=== PATIENT | female | born 1950 | race Asian ===

== ENCOUNTER 2019-04-22 23:06 | Emergency (ER) | payer OTHER ==
[~2019-04-22] VITALS: Ht 157.5 cm; Wt 86.0 kg
[2019-04-22 23:20] VITALS: BP 174/105
[2019-04-22] MEDS ORDERED: SODIUM CHLORIDE 0.9% 2,000 ML IV ONE (23:30)
[2019-04-22] MEDS: ACETAMINOPHEN 500 MG TABLET PO ONE ×2 (23:35→23:39)
[2019-04-22 23:48] LABS: APPEARANCE,URINE CLEAR (CLEAR); BILIRUBIN,URINE NEGATIVE (NEGATIVE); GLUCOSE, URINE (UA) NEGATIVE (NEGATIVE); KETONES,URINE NEGATIVE (NEGATIVE); LEUKOCYTE ESTERASE ,URINE NEGATIVE (NEGATIVE); NITRATE,URINE NEGATIVE (NEGATIVE); OCCULT BLOOD,URINE NEGATIVE (NEGATIVE); PROTEIN,URINE NEGATIVE (NEGATIVE); UROBILINOGEN,URINE 0.2 mg/dL (<=1.0)
[2019-04-22 23:54] LABS: BACTERIA,URINE None Seen /HPF (None Seen); RBC,URINE 0-2 /HPF (0-2); SQUAMOUS EPITHELIAL CELL,UR Rare /LPF (None Seen); WBC,URINE 0-2 /HPF (0-5)
[2019-04-22 23:57] LABS: BASOPHILS % (AUTO) 1.1 % (0.0-2.0); EOSINOPHILS % (AUTO) 2.5 % (1.0-6.0); HEMATOCRIT 43.6 % (36-46); HEMOGLOBIN 14.6 g/dL (12.0-16.0); MEAN CORPUSCULAR HEMOGLOBIN 32.6 pg (26.0-34.0); MEAN CORPUSCULAR HGB CONC 33.6 G/dL (31.0-37.0); MEAN CORPUSCULAR VOLUME 97 fL (80-100); MONOCYTES # (AUTO) 0.8 K/uL (0.1-1.0); MONOCYTES % (AUTO) 12.3 % (2.0-9.0); NEUTROPHILS # (AUTO) 4.3 K/uL (1.8-7.7); NEUTROPHILS % (AUTO) 68.1 % (40.0-70.0); PLATELET COUNT (AUTO) 238 K/uL (150-450); RED BLOOD CELL COUNT(AUTO) 4.48 MIL/uL (4.00-5.20); RED CELL DISTRIBUTION WIDTH 12.4 % (11.5-14.5)
[2019-04-23 00:03] LABS: INFLUENZA TYPE A NEGATIVE FOR TYPE A (NEGATIVE); INFLUENZA TYPE B NEGATIVE FOR TYPE B (NEGATIVE)
[2019-04-23 00:04] LABS: ANION GAP 11 mmol/L (8-16); CALCIUM, TOTAL 8.2 mg/dL (8.8-10.5); CARBON DIOXIDE 27 mmol/L (22-29); CHLORIDE 101 mmol/L (98-107); CREATININE 0.89 mg/dL (0.60-1.30); GLOMERULAR FILTR. RATE CALC > 60 mL/min (>60); GLUCOSE,RANDOM 122 mg/dL (70-110); SODIUM SERUM 139 mmol/L (136-145); UREA NITROGEN, BLOOD 12 mg/dL (7-18)
[2019-04-23 00:11] LABS: ALANINE AMINOTRANSFERASE 49 U/L (12-78); ALBUMIN 3.6 g/dL (3.4-5.0); ALKALINE PHOSPHATASE 88 U/L (46-116); ASPARTATE AMINOTRANSFERASE 41 U/L (15-37); BILIRUBIN,TOTAL 0.3 mg/dL (0.1-1.0); LIPASE 164 U/L (73-393); TOTAL PROTEIN, SERUM 7.6 g/dL (6.4-8.2)
[2019-04-23 00:13] LABS: LACTIC ACID 1.2 mmol/L (0.4-2.0)
[2019-04-23] MEDS ORDERED: IBUPROFEN 600 MG TABLET PO ONE (00:15)
[2019-04-23] MEDS ORDERED: HYDROCODONE/ACETAMINOPHEN 5-325 MG TABLET PO ONE (00:30)
[2019-04-23] MEDS ORDERED: GuaiFENesin/D-METHORPHAN [SUGAR-FREE] 200-20MG/10 ML SYRUP UDCUP PO ONE (00:30)
== END 2019-04-23 01:33 | disposition home or self-care (01) ==
LOC: EMS 23:08
DX: J06.9 Acute upper respiratory infection, unspecified (principal); M17.0 Bilateral primary osteoarthritis of knee; J02.9 Acute pharyngitis, unspecified; E86.0 Dehydration
CPT/HCPCS: 36415; 71045; 80053; 81001; 83605; 83690; 84484; 85025; 87040; 87804; 93005; 96360; 96361; 99285; J7030

== ENCOUNTER 2023-10-24 10:24 | Emergency (ER) | payer MEDICARE, OTHER ==
[~2023-10-24] VITALS: Ht 157.5 cm; Wt 75.0 kg
[2023-10-24 10:32] VITALS: BP 137/73; PULSE 84; RESP 20; TEMP 98.4
[2023-10-24 10:38] LABS: COVID AG,FIA SOURCE NASAL SWAB
[2023-10-24 11:28] LABS: INFLUENZA TYPE A NEGATIVE FOR TYPE A (NEGATIVE); INFLUENZA TYPE B NEGATIVE FOR TYPE B (NEGATIVE)
[2023-10-24 11:42] LABS: SARS-COV2 (COVID) ANTIGEN,FIA Positive (Negative)
[2023-10-24] MEDS ORDERED: BENZ-227 PO (13:20)
[2023-10-24] MEDS ORDERED: AZIT250T9 PO (13:33)
[2023-10-24] MEDS ORDERED: IBUP-1506 PO (13:39)
== END 2023-10-24 13:45 | disposition home or self-care (01) ==
LOC: EMS 10:43
DX: U07.1 COVID-19 (principal); J18.9 Pneumonia, unspecified organism; I10 Essential (primary) hypertension
CPT/HCPCS: 71046; 87804; 99284

== ENCOUNTER 2025-04-17 05:46 | Emergency (ER) | payer MEDICARE ==
[~2025-04-17] VITALS: Ht 154.9 cm; Wt 75.0 kg
[~2025-04-17 05:46] MED LIST: BENZ-227 PO; IBUP-1506 PO
[2025-04-17 05:47] VITALS: TEMP 97.7
[2025-04-17] MEDS: MECLIZINE HCL 25 MG TABLET PO ONE (06:41)
[2025-04-17 06:48] LABS: PLATELET COUNT (AUTO) 228 K/uL (150-450); RED BLOOD CELL COUNT(AUTO) 4.12 MIL/uL (4.00-5.20); RED CELL DISTRIBUTION WIDTH 13.4 % (11.5-14.5); WHITE BLOOD COUNT (AUTO) 5.8 K/uL (4.5-11.0)
[2025-04-17 06:56] LABS: CALCIUM, TOTAL 7.8 mg/dL (8.8-10.5); CREATININE 0.89 mg/dL (0.60-1.30); GLOMERULAR FILTR. RATE CALC > 60 mL/min (>60); GLUCOSE,RANDOM 123 mg/dL (70-110); SODIUM SERUM 139 mmol/L (136-145); UREA NITROGEN, BLOOD 14 mg/dL (7-18)
[2025-04-17 07:41] LABS: APPEARANCE,URINE CLEAR (CLEAR); GLUCOSE, URINE (UA) NEGATIVE (NEGATIVE); LEUKOCYTE ESTERASE ,URINE NEGATIVE (NEGATIVE); NITRATE,URINE NEGATIVE (NEGATIVE); OCCULT BLOOD,URINE NEGATIVE (NEGATIVE); SPECIFIC GRAVITIY, URINE 1.009 (1.003-1.030)
[2025-04-17] MEDS: POTASSIUM CHLORIDE 20 MEQ ER TABLET PO ONE (07:41)
[2025-04-17 07:45] LABS: RBC MORPHOLOGY COMMENT ABNORMAL RBC MORPH
[2025-04-17 08:37] VITALS: BP 138/66; PULSE 75; RESP 18; O2SAT 96
[2025-04-17] MEDS ORDERED: MECL-302 PO (08:50)
== END 2025-04-17 09:22 | disposition home or self-care (01) ==
LOC: EMS 05:46
DX: H81.393 Other peripheral vertigo, bilateral (principal); I10 Essential (primary) hypertension; Z79.899 Other long term (current) drug therapy
CPT/HCPCS: 80048; 81003; 85025; 93005; 99284

== ENCOUNTER 2025-05-05 12:34 | Emergency (ER) | payer MEDICARE, OTHER ==
[~2025-05-05] VITALS: Ht 154.9 cm; Wt 83.4 kg
[~2025-05-05 12:34] MED LIST changes: +MECL-302 PO
[2025-05-05 12:56] VITALS: TEMP 98.1
[2025-05-05 13:15] LABS: PLATELET COUNT (AUTO) 276 K/uL (150-450); RBC MORPHOLOGY COMMENT ABNORMAL RBC MORPH; RED BLOOD CELL COUNT(AUTO) 4.85 MIL/uL (4.00-5.20); RED CELL DISTRIBUTION WIDTH 13.4 % (11.5-14.5); WHITE BLOOD COUNT (AUTO) 8.6 K/uL (4.5-11.0)
[2025-05-05 13:19] LABS: CALCIUM, TOTAL 9.7 mg/dL (8.8-10.5); CREATININE 1.19 mg/dL (0.60-1.30); GLOMERULAR FILTR. RATE CALC 45 mL/min (>60); GLUCOSE,RANDOM 117 mg/dL (70-110); SODIUM SERUM 140 mmol/L (136-145); UREA NITROGEN, BLOOD 14 mg/dL (7-18)
[2025-05-05 13:25] LABS: ASPARTATE AMINOTRANSFERASE 34.0 U/L (15-37); TOTAL PROTEIN, SERUM 8.6 g/dL (6.4-8.2)
[2025-05-05 13:30] LABS: TROPONIN I-HIGH SENSITIVITY 6 ng/L (<51)
[2025-05-05] MEDS: MECLIZINE HCL 25 MG TABLET PO ONE (13:55)
[2025-05-05] MEDS: ACETAMINOPHEN 500 MG TABLET PO ONE (13:56)
[2025-05-05 14:22] LABS: APPEARANCE,URINE CLEAR (CLEAR); GLUCOSE, URINE (UA) NEGATIVE (NEGATIVE); LEUKOCYTE ESTERASE ,URINE MODERATE (NEGATIVE); NITRATE,URINE NEGATIVE (NEGATIVE); OCCULT BLOOD,URINE NEGATIVE (NEGATIVE); SPECIFIC GRAVITIY, URINE 1.010 (1.003-1.030)
[2025-05-05 14:36] LABS: SQUAMOUS EPITHELIAL CELL,UR Few /LPF (None Seen)
[2025-05-05] MEDS: ONDANSETRON HCL 4 MG/2 ML VIAL IVP ONE (14:57)
[2025-05-05] MEDS ORDERED: CefTRIAXone 1 GM/DEXTROSE 50 ML IV ONE (15:00)
[2025-05-05] MEDS: SODIUM CHLORIDE 0.9% 1,000 ML IV ONE (15:41)
[2025-05-05 15:51] VITALS: BP 150/89; PULSE 100; RESP 20; O2SAT 100
== END 2025-05-05 16:53 | disposition short-term general hospital (02) ==
LOC: EMS 12:34
DX: N39.0 Urinary tract infection, site not specified (principal); R55 Syncope and collapse; I10 Essential (primary) hypertension; R06.02 Shortness of breath
CPT/HCPCS: 99285; 96374; 70450; 71045; 96361; 80048; 80076; 81001; 83735; 83880; 84484; 85025; 85610; 85730; 87077; 87086; 36415; 93005; J2405; J7030